=== PATIENT | male | born 1960 | race Two or more races ===

== ENCOUNTER 2019-06-30 08:41 | Emergency (ER) | payer MEDICAID ==
[~2019-06-30] VITALS: Ht 170.2 cm; Wt 82.6 kg
[2019-06-30 09:11] VITALS: BP 140/69
[2019-06-30] MEDS ORDERED: FLUORESCEIN SOD 1 MG TEST STRIP OP ONE (09:15)
[2019-06-30] MEDS ORDERED: TETRACAINE HCL 0.5% OPTH(EYE) SOLN 4ML EACHEYE ONE (09:15)
== END 2019-06-30 09:46 | disposition home or self-care (01) ==
LOC: ER 08:41
DX: S05.01XA Injury of conjunctiva and corneal abrasion without foreign body, right eye, initial encounter (principal); E11.9 Type 2 diabetes mellitus without complications; X58.XXXA Exposure to other specified factors, initial encounter; Y93.89 Activity, other specified; Y92.89 Other specified places as the place of occurrence of the external cause; Y99.8 Other external cause status
CPT/HCPCS: 82962

== ENCOUNTER 2019-07-06 13:11 | Emergency (ER) | payer MEDICAID ==
[~2019-07-06] VITALS: Ht 175.3 cm; Wt 77.1 kg
[2019-07-06 13:39] VITALS: BP 115/70
== END 2019-07-06 14:46 | disposition home or self-care (01) ==
LOC: ER 13:11
DX: H01.003 Unspecified blepharitis right eye, unspecified eyelid (principal)

== ENCOUNTER 2019-08-03 08:44 | Emergency (ER) | payer SELFPAY ==
[2019-08-03 08:47] VITALS: BP 137/92
== END 2019-08-03 09:43 | disposition home or self-care (01) ==
LOC: ER 08:44
DX: E11.9 Type 2 diabetes mellitus without complications (principal); Z76.0 Encounter for issue of repeat prescription
CPT/HCPCS: 82962